=== PATIENT | male | born 1965 | race Caucasian/White ===

== ENCOUNTER 2018-10-18 14:07 | Inpatient (IN) | payer OTHER ==
[~2018-10-18] VITALS: Ht 170.2 cm; Wt 98.4 kg
[2018-10-18] MEDS ORDERED: NALOXONE 2 MG/2 ML DISP.SYRIN. IV ONE ×3 (14:08→15:30)
[2018-10-18 14:36] LABS: BASO # 0.1 x10^3/uL (0.0-0.2); BASO % 1 % (0-3); EOS # 0.2 x10^3/uL (0.0-0.7); EOS % 2 % (0-3); HEMATOCRIT 47.5 % (39.0-53.0); HEMOGLOBIN 16.3 g/dL (13.0-17.5); LYMPH # 3.3 x10^3/uL (1.0-4.8); LYMPH % 35 % (24-48); MEAN CORPUSCULAR HEMOGLOBIN 31 pg (25-35); MEAN CORPUSCULAR HGB CONC 34 g/dL (31-37); MEAN CORPUSCULAR VOLUME 90 fL (79-100); MONO # 0.7 x10^3/uL (0.0-1.1); MONO % 7 % (0-9); NEUT # 5.3 x10^3uL (1.8-7.7); NEUT % 56 % (31-73); PLATELET COUNT 264 x10^3/uL (140-400); RED BLOOD COUNT 5.26 x10^6/uL (4.30-5.70); RED CELL DISTRIBUTION WIDTH 13.5 % (11.5-14.5); WHITE BLOOD COUNT 9.5 x10^3/uL (4.0-11.0)
[2018-10-18 14:46] LABS: BILIRUBIN,URINE NEG (NEG); CLARITY,URINE CLEAR; COLOR,URINE YELLOW; GLUCOSE,URINE NEG (NEG)
[2018-10-18 14:47] LABS: ALBUMIN 3.7 g/dL (3.4-5.0); CALCIUM 8.9 mg/dL (8.5-10.1); GFR 78.5; POTASSIUM 3.4 mmol/L (3.5-5.1); TOTAL BILIRUBIN 0.3 mg/dL (0.2-1.0); TOTAL PROTEIN 7.4 g/dL (6.4-8.2)
[2018-10-18 14:47] LABS: BACTERIA,URINE 0 /HPF (0-FEW); NITRITE,URINE NEG (NEG); RBC,URINE 0 /HPF (0-2); UROBILINOGEN,URINE 0.2 mg/dL (0.2 mg/dL); WBC,URINE 0 /HPF (0-4)
[2018-10-18 14:48] LABS: BARBITURATES NEG (NEG); BENZODIAZEPINES NEG (NEG); CANNABINOIDS NEG (NEG); COCAINE NEG (NEG); METHADONE NEG (NEG); OPIATES NEG (NEG); PHENCYCLIDINE NEG (NEG)
[2018-10-18 14:49] LABS: AMPHETAMINE/METHAMPHETAMINE NEG (NEG)
--- NOTE | 2018-10-18 15:58 | RAD ---
CT HEAD WO CONTRAST Indication: AMS, Possible injestion or use of unknown drug or substance,K2. Pt combative, movement during exam.Best imaging possible
Exposure: One or more of the following individualized dose reduction techniques were utilized for this examination: 1. Automated exposure control 2. Adjustment of the mA and/or kV according to patient size 3. Use of iterative reconstruction technique. Comparison: None are available. Contrast: None FINDINGS: There is some motion degradation, may limit accuracy. No acute intracranial hemorrhage, mass effect, midline shift or abnormal extra-axial fluid collection is identified. Mild prominence of the ventricles, could indicate borderline atrophy. Schultz-white matter distinction is intact. Partially visualized sinuses demonstrate mild left maxillary and ethmoid mucosal thickening. No acute skull abnormality is identified. Orbits appear unremarkable. IMPRESSION: No definite acute intracranial abnormality, but exam limited by motion degradation. Electronically signed by: Juan Jimenez MD (10/18/2018 3:56 PM) [facility]
--- NOTE | 2018-10-18 16:01 | PHYS DOC ---
Past History Past Medical History: Hypertension Past Surgical History: Pacemaker Alcohol Use: None Social History Narrative: Unknown Adult General Chief Complaint Chief Complaint: ALTERED MENTAL STATUS HPI HPI 53-year-old male presents via EMS with altered mental status. The patient was reportedly found unresponsive in the field. During transport, he was moaning and yelling. He had no difficulty breathing so he did not get intubated. No Narcan was given. On arrival, the patient had pinpoint pupils and was having no difficulty breathing. He was unable to wake up and talk to us. He was given 2 mg of Narcan. He then began to moan loudly but would not answer questions. The [place] is [place] Their suspicion for some form of drug use. Review of Systems Review of Systems Unable to perform due to the patient being verbally unresponsive. Current Medications Current Medications Current Medications Medications (Trade) Dose Ordered Sig/Daphne Start Time Stop Time Status Last Admin Dose Admin Lorazepam (Ativan) 2 mg 1X ONCE 10/18/18 15:15 10/18/18 15:16 DC 10/18/18 15:10 2 MG Naloxone HCl (Narcan) 2 mg 1X ONCE 10/18/18 15:30 10/18/18 15:31 DC Allergies Allergies Allergies Coded Allergies Type Severity Reaction Last Updated Verified No Known Drug Allergies 10/18/18 No Physical Exam Physical Exam Constitutional: Well developed, well nourished, verbally unresponsive non-toxic appearance. [] HENT: Normocephalic, atraumatic, bilateral external ears normal, oropharynx moist, no oral exudates, nose normal. [] Eyes: Pupils pinpoint, EOMI, conjunctiva normal, no discharge. [] Neck: Normal range of motion, no tenderness, supple, no stridor. [] Cardiovascular:Heart rate regular rhythm, no murmur [] Lungs & Thorax: Bilateral breath sounds clear to auscultation [] Abdomen: Bowel sounds normal, soft, no tenderness, no masses, no pulsatile masses. [] Skin: Warm, dry, no erythema, no rash. [] Back: No tenderness, no CVA tenderness. [] Extremities: No tenderness, no cyanosis, no clubbing, ROM intact, no edema. [] Neurologic: Unresponsive, spontaneous movement of all extremities with noxious stimuli[] Psychologic: Unable to evaluate[] Current Patient Data Vital Signs Vital Signs Date Time Temp Pulse Resp B/P (MAP) Pulse Ox O2 Delivery O2 Flow Rate FiO2 10/18/18 15:16 82 18 120/66 (84) 95 Room Air 10/18/18 14:34 97.8 Lab Results Laboratory Tests Test 10/18/18 14:11 10/18/18 14:24 White Blood Count 9.5 x10^3/uL (4.0-11.0) Red Blood Count 5.26 x10^6/uL (4.30-5.70) Hemoglobin 16.3 g/dL (13.0-17.5) Hematocrit 47.5 % (39.0-53.0) Mean Corpuscular Volume 90 fL (79-100) Mean Corpuscular Hemoglobin 31 pg (25-35) Mean Corpuscular Hemoglobin Concent 34 g/dL (31-37) Red Cell Distribution Width 13.5 % (11.5-14.5) Platelet Count 264 x10^3/uL (140-400) Neutrophils (%) (Auto) 56 % (31-73) Lymphocytes (%) (Auto) 35 % (24-48) Monocytes (%) (Auto) 7 % (0-9) Eosinophils (%) (Auto) 2 % (0-3) Basophils (%) (Auto) 1 % (0-3) Neutrophils # (Auto) 5.3 x10^3uL (1.8-7.7) Lymphocytes # (Auto) 3.3 x10^3/uL (1.0-4.8) Monocytes # (Auto) 0.7 x10^3/uL (0.0-1.1) Eosinophils # (Auto) 0.2 x10^3/uL (0.0-0.7) Basophils # (Auto) 0.1 x10^3/uL (0.0-0.2) Sodium Level 139 mmol/L (136-145) Potassium Level 3.4 mmol/L (3.5-5.1) L Chloride Level 102 mmol/L (98-107) Carbon Dioxide Level 25 mmol/L (21-32) Anion Gap 12 (6-14) Blood Urea Nitrogen 10 mg/dL (8-26) Creatinine 1.0 mg/dL (0.7-1.3) Estimated GFR (Cockcroft-Gault) 78.5 BUN/Creatinine Ratio 10 (6-20) Glucose Level 121 mg/dL (70-99) H Calcium Level 8.9 mg/dL (8.5-10.1) Total Bilirubin 0.3 mg/dL (0.2-1.0) Aspartate Amino Transferase (AST) 15 U/L (15-37) Alanine Aminotransferase (ALT) 18 U/L (16-63) Alkaline Phosphatase 88 U/L (46-116) Total Protein 7.4 g/dL (6.4-8.2) Albumin 3.7 g/dL (3.4-5.0) Albumin/Globulin Ratio 1.0 (1.0-1.7) Urine Collection Type U cath Urine Color Yellow Urine Clarity Clear Urine pH 5.0 Urine Specific [place] <=1.005 Urine Protein Neg (NEG-TRACE) Urine Glucose (UA) Neg mg/dL (NEG) Urine Ketones (Stick) Neg mg/dL (NEG) Urine Blood Neg (NEG) Urine Nitrite Neg (NEG) Urine Bilirubin Neg (NEG) Urine Urobilinogen Dipstick 0.2 mg/dL (0.2 mg/dL) Urine Leukocyte Esterase Neg (NEG) Urine RBC 0 /HPF (0-2) Urine WBC 0 /HPF (0-4) Urine Squamous Epithelial Cells None /LPF Urine Bacteria 0 /HPF (0-FEW) Urine Opiates Screen Neg (NEG) Urine Methadone Screen Neg (NEG) Urine Barbiturates Neg (NEG) Urine Phencyclidine Screen Neg (NEG) Urine Amphetamine/Methamphetamine Neg (NEG) Urine Benzodiazepines Screen Neg (NEG) Urine Cocaine Screen Neg (NEG) Urine Cannabinoids Screen Neg (NEG) Urine Ethyl Alcohol Pos (NEG) EKG EKG [] Radiology/Procedures Radiology/Procedures [] Impressions: CT HEAD WO CONTRAST Indication: AMS, Possible injestion or use of unknown drug or substance,K2. Pt combative, movement during exam.Best imaging possible
Exposure: One or more of the following individualized dose reduction techniques were utilized for this examination: 1. Automated exposure control 2. Adjustment of the mA and/or kV according to patient size 3. Use of iterative reconstruction technique. Comparison: None are available. Contrast: None FINDINGS: There is some motion degradation, may limit accuracy. No acute intracranial hemorrhage, mass effect, midline shift or abnormal extra-axial fluid collection is identified. Mild prominence of the ventricles, could indicate borderline atrophy. Schultz-white matter distinction is intact. Partially visualized sinuses demonstrate mild left maxillary and ethmoid mucosal thickening. No acute skull abnormality is identified. Orbits appear unremarkable. IMPRESSION: No definite acute intracranial abnormality, but exam limited by motion degradation. Electronically signed by: Juan Jimenez MD (10/18/2018 3:56 PM) [facility] DICTATED AND SIGNED BY: JUAN JIMENEZ MD DATE: 10/18/18 0552 CC: LOREN MURPHY DO; PCP,NO ~ Course & Med Decision Making Course & Med Decision Making Pertinent Labs and Imaging studies reviewed. (See chart for details) The patient was initially given 2 mg of Narcan on arrival. He then began to moan and make noise. He did not say any intelligible words. While he was moaning he did say a couple of real words, but would not answer questions. He then became combative and was flailing about. We gave him multiple doses of Ativan. This calms the patient down. We did have to intermittently use restraints when he was combative. His labs are unremarkable. His urinalysis is only significant for alcohol. I suspect the patient is doing some form of synthetic drug that we can't test for. At no time did he have respiratory compromise. His head CT was unremarkable. I discussed the case with Dr. Rodriguez and he agreed to admit the patient. He is being monitored by intermediate guards. [] Dragon Disclaimer Dragon Disclaimer This electronic medical record was generated, in whole or in part, using a voice recognition dictation system. Departure Departure: Impression: Primary Impression: Drug intoxication with delirium Disposition: ADMITTED INPATIENT Condition: GUARDED Referrals: PCP,NO (PCP) LOREN MURPHY DO Oct 18, 2018 16:01
[2018-10-18] MEDS ORDERED: ONDANSETRON PF 4 MG/2 ML VIAL. IV PRN (17:15)
[2018-10-18 19:58] VITALS: BP 91/60
[2018-10-18 23:05] VITALS: BP 125/78
[2018-10-19] MEDS ORDERED: AMLO5TAB10 PO (01:02)
[2018-10-19] MEDS ORDERED: LOSA100T14 PO (01:02)
[2018-10-19] MEDS ORDERED: HYDR12.58 PO (01:02)
[2018-10-19] MEDS ORDERED: LORA10TA3 PO (01:02)
[2018-10-19] MEDS ORDERED: SOTA80TA48 PO (01:02)
[2018-10-19 05:25] VITALS: BP 138/85
[2018-10-19 11:26] VITALS: BP 124/86
[2018-10-19] MEDS: IBUPROFEN 400 MG TABLET. PO PRN ×2 (12:28→19:12)
--- NOTE | 2018-10-19 14:23 | EKG ---
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
[2018-10-19 14:43] VITALS: BP 135/94
--- NOTE | 2018-10-19 16:57 | HP ---
ADMIT DATE: 10/18/2018 HISTORY OF PRESENT ILLNESS: The patient is a 53-year-old male patient, an inmate at the [facility], who was brought to the Emergency Room by emergency medical personnel with altered mental status. The patient was reportedly found unresponsive in the field and during transport, he was moaning and yelling. He had no difficulty breathing, so he did not get intubated. No Narcan was given. On arrival, the patient has pinpoint pupils and was having no difficulty breathing. He was unable to wake up and talk to us. He was given 2 mg of Narcan. He then began to moan loudly, but would not answer questions. The patient is from a low security halfway and there was suspicion for some form of drug use. He was extensively investigated in the Emergency Room, has had a CT scan of the head, which basically showed no definite acute intracranial abnormality, but exam limited by motion degradation. His lab work was mostly unremarkable except for the fact has hypokalemia. His urinalysis was negative and his toxic screen was positive for alcohol. He was admitted for further observation. On questioning him, when he woke up, he apparently has had most likely systolic congestive heart failure. He apparently has what seems to be systolic congestive heart failure with runs of V-tach for which he has an AICD placed in 2004 and interrogated every 6 months according to him. PAST SURGICAL HISTORY: Significant for AICD placement. ALLERGIES: He has no known drug allergies. MEDICATIONS: He is currently on following medications: He is on loratadine 10 mg once a day, sotalol 160 mg p.o. b.i.d., amlodipine 5 mg once a day, losartan potassium 50 mg once a day and hydrochlorothiazide 12.5 mg daily. FAMILY HISTORY: He has 2 sisters and 1 brother, older and healthy. His father at the age of 62 because of stroke and mother at age of 78 of natural causes. SOCIAL HISTORY: He is , has no children. He does not smoke or drink alcohol. His last time use cocaine was in 2004. PHYSICAL EXAMINATION: GENERAL: On arrival to the Emergency Room, the patient was a pinpoint pupil, was moaning but was unresponsive. Despite even giving him Narcan. There was no pallor, jaundice, cyanosis, or thyromegaly. No jugular venous distension. No limb edema. VITAL SIGNS: His heart rate was 83, blood pressure was 78/63, temperature was 97.8, respiratory rate was 18 and oxygen saturation was 99% on room air. HEAD, EYES, EARS, NOSE AND THROAT: Showed normocephalic, atraumatic. NECK: Supple. HEART: Showed normal first and second heart sounds. No gallop, rub or murmur. CHEST: Clear to auscultation. No crepitation or rhonchi. ABDOMEN: Distended, soft, nontender. NEUROLOGIC: He was unresponsive, but without any obvious lateralizing sign. LABORATORY DATA: On arrival showed a white cell count 9500, hemoglobin 16, hematocrit 47.5, MCV 90 and platelet count 264,000. His chemistry showed a serum sodium 139, potassium 3.4, chloride 102, bicarbonate 25, anion gap of 12, BUN 10, creatinine 1, estimated GFR was 78 mL per minute, his glucose 121, calcium was 8.9. Total bilirubin 0.3. AST, ALT, alkaline phosphatase were normal. Total protein was 7.4, albumin 3.7. Urinalysis was unremarkable. Toxic screen was negative except for alcohol. His nasal screen for MRSA by PCR was positive. ASSESSMENT AND PLAN: The patient was admitted for further observation. We have will consult the cardiology to interrogate his [employer] and decide on further management accordingly. VISHAL ZAMORA MD DR: SHAHBAZ/edwina JOB#: [id number] / [id number]
[2018-10-19 19:13] VITALS: BP 137/89
[2018-10-19] MEDS: SOTALOL 80 MG TABLET. PO SCH (19:52)
[2018-10-19 22:08] VITALS: BP 139/83
--- NOTE | 2018-10-19 22:37 | PDOC ---
PROVIDER NOTE PROVIDER NOTE PROVIDER NOTE Cardiology Consultation Note: Reason for consult: CMP and Syncope HPI: 53 y.o man with prior history of VT s/p ICD presenting for syncopal event at correction. Denies any preceding problems. No recent med changes. No chest pain or dyspnea. Currently feeling well. He had ICD placedin 2004 and has had one gen change. Mostly followed through [facility]. Pmhx As above +HTN Sochx: Been imprisoned for last several years. Previously did drugs. ALL: NKDA CV meds reviewed: Sotalol 160mg bid. Amlodipine Losartan ROS: As above Famhx: No SCD. Constitutional: Well developed, well nourished, no acute distress, non-toxic appearance. [] Eyes: PERRLA, EOMI, conjunctiva normal, no discharge. [] Neck: Normal range of motion, no tenderness, supple, no stridor. [] Cardiovascular:Heart rate regular rhythm, no murmur [] Lungs & Thorax: Bilateral breath sounds clear to auscultation [] Abdomen: Bowel sounds normal, soft, no tenderness, no masses, no pulsatile masses. [] Skin: Warm, dry, no erythema, no rash. [] Back: No tenderness, no CVA tenderness. [] Extremities: No tenderness, no cyanosis, no clubbing, ROM intact, no edema. [] Neurologic: Alert and oriented X 3, normal motor function, normal sensory function, no focal deficits noted. [] Psychologic: Affect normal, judgement normal, mood normal. [] Labs reviewed. EKG unremarkable. Await records. Impression: 1. Syncope - etiology unclear. Given his history will need to r/o occult new arrhythmia. Drug screen with ? alcohol. 2. VT s/p ICD - awaiting interrogation 3. HTN Plan: 1. Continue home meds. 2. Replete to keep K > 4.0 and Mg > 2.0. Will check labs in a.m 3. Await records and interrogation. 4. Echo ordered. Thanks for this consult. DIscussed extensively with patient. EDITH MARIE MD Oct 19, 2018 22:36
[2018-10-19] MEDS ORDERED: POTASSIUM CHLORIDE 20 MEQ TABLET.ER. PO ONE (23:00)
[2018-10-20 05:14] VITALS: BP 104/67
[2018-10-20 06:34] LABS: HEMATOCRIT 48.2 % (39.0-53.0); HEMOGLOBIN 16.5 g/dL (13.0-17.5); RED BLOOD COUNT 5.36 x10^6/uL (4.30-5.70); RED CELL DISTRIBUTION WIDTH 13.7 % (11.5-14.5)
[2018-10-20 06:46] LABS: ALBUMIN 3.4 g/dL (3.4-5.0); ALBUMIN/GLOBULIN RATIO 0.9 (1.0-1.7); CREATININE 1.7 mg/dL (0.7-1.3); GFR 42.5; POTASSIUM 4.2 mmol/L (3.5-5.1); TOTAL BILIRUBIN 0.8 mg/dL (0.2-1.0); TOTAL PROTEIN 7.2 g/dL (6.4-8.2)
[2018-10-20 09:30] VITALS: BP 110/74
[2018-10-20] MEDS: hydroCHLOROthiazide 12.5 MG CAPSULE PO SCH (09:43)
[2018-10-20] MEDS: CETIRIZINE HCL 10 MG TABLET PO SCH (09:52)
[2018-10-20] MEDS: LOSARTAN 50 MG TABLET. PO SCH (09:53)
[2018-10-20] MEDS: amLODIPine BESYLATE 5 MG TABLET PO SCH (09:53)
[2018-10-20] MEDS: SOTALOL 80 MG TABLET. PO SCH ×2 (09:54→21:07)
[2018-10-20 10:46] VITALS: BP 122/80
--- NOTE | 2018-10-20 12:23 | PDOC ---
PROGRESS NOTES Diagnosis Problem Problems Medical Problems: (1) Drug intoxication with delirium Status: Acute Assessment Problems Medical Problems: (1) Drug intoxication with delirium Status: Acute Syncope - no arrhythmias, by device check, to explain syncope. No orthostasis. Questionable substance use? consider neuro eval. VT s/p ICD - device interrogation with appropriate impedance, thresholds and sensitivity. No sustained VT events. no therapies required or delivered. 3 non episodes of SVT 150s , 2 min at noon, 22 seconds at 1202 and 25 seconds at 1625. No arrhythmias significant to cause syncope. hypertension - well controlled acute renal insufficiency - stop HCTZ Subjective no complaints, no chest pain, no dyspnea, no lightheadedness Objective Vital Signs Date Time Temp Pulse Resp B/P (MAP) Pulse Ox O2 Delivery O2 Flow Rate FiO2 10/20/18 10:46 97.7 89 20 122/80 (94) 98 Room Air Intake and Output 10/20/18 06:59 Intake Total 480 ml Output Total 650 ml Balance -170 ml Intake Oral 480 ml Output Urine Total 650 ml Physical Exam Genral: alert, oriented, NAD [] Cardiovascular:Heart rate regular rhythm, no murmur Lungs : Bilateral breath sounds clear to auscultation Abdomen: Bowel sounds normal, soft, no tenderness Extremities: no cyanosis, no edema, +pulses Neurologic: Alert and oriented X 3, no acute deficits observed Review of Relevant I have reviewed the following items supriya (where applicable) has been applied. Labs Laboratory Tests Test 10/18/18 14:11 10/18/18 14:24 10/18/18 20:34 10/20/18 06:00 White Blood Count 9.5 x10^3/uL (4.0-11.0) 10.0 x10^3/uL (4.0-11.0) Red Blood Count 5.26 x10^6/uL (4.30-5.70) 5.36 x10^6/uL (4.30-5.70) Hemoglobin 16.3 g/dL (13.0-17.5) 16.5 g/dL (13.0-17.5) Hematocrit 47.5 % (39.0-53.0) 48.2 % (39.0-53.0) Mean Corpuscular Volume 90 fL (79-100) 90 fL (79-100) Mean Corpuscular Hemoglobin 31 pg (25-35) 31 pg (25-35) Mean Corpuscular Hemoglobin Concent 34 g/dL (31-37) 34 g/dL (31-37) Red Cell Distribution Width 13.5 % (11.5-14.5) 13.7 % (11.5-14.5) Platelet Count 264 x10^3/uL (140-400) 253 x10^3/uL (140-400) Neutrophils (%) (Auto) 56 % (31-73) Lymphocytes (%) (Auto) 35 % (24-48) Monocytes (%) (Auto) 7 % (0-9) Eosinophils (%) (Auto) 2 % (0-3) Basophils (%) (Auto) 1 % (0-3) Neutrophils # (Auto) 5.3 x10^3uL (1.8-7.7) Lymphocytes # (Auto) 3.3 x10^3/uL (1.0-4.8) Monocytes # (Auto) 0.7 x10^3/uL (0.0-1.1) Eosinophils # (Auto) 0.2 x10^3/uL (0.0-0.7) Basophils # (Auto) 0.1 x10^3/uL (0.0-0.2) Sodium Level 139 mmol/L (136-145) 141 mmol/L (136-145) Potassium Level 3.4 mmol/L (3.5-5.1) 4.2 mmol/L (3.5-5.1) Chloride Level 102 mmol/L (98-107) 106 mmol/L (98-107) Carbon Dioxide Level 25 mmol/L (21-32) 26 mmol/L (21-32) Anion Gap 12 (6-14) 9 (6-14) Blood Urea Nitrogen 10 mg/dL (8-26) 13 mg/dL (8-26) Creatinine 1.0 mg/dL (0.7-1.3) 1.7 mg/dL (0.7-1.3) Estimated GFR (Cockcroft-Gault) 78.5 42.5 BUN/Creatinine Ratio 10 (6-20) 8 (6-20) Glucose Level 121 mg/dL (70-99) 107 mg/dL (70-99) Calcium Level 8.9 mg/dL (8.5-10.1) 9.0 mg/dL (8.5-10.1) Total Bilirubin 0.3 mg/dL (0.2-1.0) 0.8 mg/dL (0.2-1.0) Aspartate Amino Transf (AST/SGOT) 15 U/L (15-37) 13 U/L (15-37) Alanine Aminotransferase (ALT/SGPT) 18 U/L (16-63) 16 U/L (16-63) Alkaline Phosphatase 88 U/L (46-116) 71 U/L (46-116) Total Protein 7.4 g/dL (6.4-8.2) 7.2 g/dL (6.4-8.2) Albumin 3.7 g/dL (3.4-5.0) 3.4 g/dL (3.4-5.0) Albumin/Globulin Ratio 1.0 (1.0-1.7) 0.9 (1.0-1.7) Urine Collection Type U cath Urine Color Yellow Urine Clarity Clear Urine pH 5.0 Urine Specific [place] <=1.005 Urine Protein Neg (NEG-TRACE) Urine Glucose (UA) Neg mg/dL (NEG) Urine Ketones (Stick) Neg mg/dL (NEG) Urine Blood Neg (NEG) Urine Nitrite Neg (NEG) Urine Bilirubin Neg (NEG) Urine Urobilinogen Dipstick 0.2 mg/dL (0.2 mg/dL) Urine Leukocyte Esterase Neg (NEG) Urine RBC 0 /HPF (0-2) Urine WBC 0 /HPF (0-4) Urine Squamous Epithelial Cells None /LPF Urine Bacteria 0 /HPF (0-FEW) Urine Opiates Screen Neg (NEG) Urine Methadone Screen Neg (NEG) Urine Barbiturates Neg (NEG) Urine Phencyclidine Screen Neg (NEG) Urine Amphetamine/Methamphetamine Neg (NEG) Urine Benzodiazepines Screen Neg (NEG) Urine Cocaine Screen Neg (NEG) Urine Cannabinoids Screen Neg (NEG) Urine Ethyl Alcohol Pos (NEG) Nasal Screen MRSA (PCR) Positive (Negative) Magnesium Level 2.1 mg/dL (1.8-2.4) Medications Current Medications Lorazepam (Ativan) 2 mg 1X ONCE IV Last administered on 10/18/18at 14:52; Start 10/18/18 at 15:00; Stop 10/18/18 at 15:01; Status DC Naloxone HCl (Narcan) 2 mg 1X ONCE IV Last administered on 10/18/18 15:03; Start 10/18/18 at 15:30; Stop 10/18/18 at 15:31; Status DC Naloxone HCl (Narcan) 2 mg 1X ONCE IV ; Start 10/18/18 at 15:30; Stop 10/18/18 at 15:31; Status DC Lorazepam (Ativan) 2 mg 1X ONCE IV Last administered on 10/18/18at 15:10; Start 10/18/18 at 15:15; Stop 10/18/18 at 15:16; Status DC Ondansetron HCl (Zofran) 4 mg PRN Q4HRS PRN IV NAUSEA/VOMITING; Start 10/18/18 at 17:15; Stop 10/19/18 at 17:14; Status DC Lorazepam (Ativan) 2 mg Q2HR PRN IV AGITATION; Start 10/18/18 at 17:15 Ibuprofen (Motrin) 400 mg PRN Q6HRS PRN PO INFLAMMATION Last administered on 19:12; Start 10/19/18 at 12:00 Amlodipine Besylate (Norvasc) 5 mg DAILY PO Last administered on 10/20/18 09:53 ; Start 10/20/18 at 09:00 Hydrochlorothiazide (Microzide) 12.5 mg DAILY PO Last administered on 10/20/18 09:43; Start 10/20/18 at 09:00 Losartan Potassium (Cozaar) 50 mg DAILY PO Last administered on 10/20/18 09:53 ; Start 10/20/18 at 09:00 Sotalol HCl (Betapace) 160 mg BID PO Last administered on 10/20/18 09:54; Start 10/19/18 at 21:00 Cetirizine HCl (ZyrTEC) 10 mg DAILY PO Last administered on 10/20/18 09:52; Start 10/20/18 at 09:00 Potassium Chloride (Klor-Con) 40 meq 1X ONCE PO Last administered on 10/19/18 22:55; Start 10/19/18 at 23:00; Stop 10/19/18 at 23:01; Status DC Active Scripts Active Reported Sotalol (Sotalol Hcl) 80 Mg Tablet 160 Mg PO BID Losartan Potassium 100 Mg Tablet 50 Mg PO DAILY Loratadine 10 Mg Tablet 10 Mg PO DAILY Hydrochlorothiazide Tablet (Hydrochlorothiazide) 12.5 Mg Tablet 12.5 Mg PO DAILY Amlodipine Besylate 5 Mg Tablet 5 Mg PO DAILY Vitals/I & O Vital Sign - Last 24 Hours 10/19/18 10/19/18 10/19/18 10/19/18 14:43 19:13 19:52 20:00 Temp 98.7 99.3 Pulse 116 116 Resp 20 20 B/P (MAP) 135/94 (108) 137/89 (105) 137/89 Pulse Ox 96 94 O2 Delivery Room Air Room Air Room Air 10/19/18 10/20/18 10/20/18 10/20/18 22:08 05:14 08:58 09:30 Temp 98.7 98.9 Pulse 83 84 93 Resp 20 19 B/P (MAP) 139/83 (101) 104/67 (79) 110/74 (86) Pulse Ox 95 97 O2 Delivery Room Air Room Air Room Air Room Air 10/20/18 10/20/18 10/20/18 10/20/18 09:53 09:53 09:54 10:46 Temp 97.7 Pulse 84 84 84 89 Resp 20 B/P (MAP) 110/74 110/74 110/74 122/80 (94) Pulse Ox 98 O2 Delivery Room Air Intake and Output 10/19/18 10/19/18 10/20/18 14:59 22:59 06:59 Intake Total 240 ml 240 ml Output Total 650 ml Balance 240 ml -650 ml 240 ml BOB AMOR APRN Oct 20, 2018 12:23
[2018-10-20] MEDS: IV NORMAL SALINE 1,000ML 1,000 ML IV SCH ×2 (14:37→21:03)
[2018-10-20 14:50] VITALS: BP 115/75
[2018-10-20] MEDS: IBUPROFEN 400 MG TABLET. PO PRN (18:43)
[2018-10-20 19:24] VITALS: BP 98/58
--- NOTE | 2018-10-20 20:59 | PN ---
DATE: 10/20/2018 SUBJECTIVE: The patient second is a 53-year-old male patient, an inmate at [facility], who basically came with altered mental status and was found unresponsive. He apparently is known to have history of ventricular tachycardia, status post ICD; however, device interrogation showed that the device is functioning well. There is no evidence of sustained ventricular tachycardia. No therapy is required or delivered. He has no significant arrhythmia to cause syncope. His hypertension was well controlled; however, unfortunately his kidney function has worsened, his creatinine has risen from 1-1.7 and therefore we held his thiazide diuretics and started him on IV fluid. As there is no cardiac explanation for his presentation, we will consult the neurologist, Dr. Coleman to assist in his management. PHYSICAL EXAMINATION: GENERAL: When I saw him this afternoon, he was resting, slightly propped up in bed, in no apparent respiratory distress. No pallor, jaundice, cyanosis, or thyromegaly. No jugular venous distension. No limb edema. VITAL SIGNS: His heart rate was 89, blood pressure was 122/80, temperature was 97.7, respiratory rate 20, and oxygen saturation was 98%. HEAD, EYES, EARS, NOSE, AND THROAT: Showed normocephalic, atraumatic. NECK: Supple. HEART: Showed normal first and second heart sounds. No gallop, rub or murmur. CHEST: Clear to auscultation. No crepitation or rhonchi. ABDOMEN: Distended, soft, nontender. No guarding or rigidity. No organomegaly. All hernial orifices intact. Bowel sounds normal. NEUROLOGIC: He was slightly propped up in bed, in no apparent distress. He was sleepy, but arousable. All cranial nerves intact. He moves extremities without difficulty. His intake over the last 24 hours was incompletely recorded, his output was 0. LABORATORY DATA: As of this morning, his serum sodium was 141, potassium 4.2, chloride 106, bicarbonate 26, anion gap of 9, BUN 13, creatinine 1.7, estimated GFR was 42 mL per minute. His glucose 107, calcium was 9, magnesium 2.1. Total bilirubin, AST, ALT, alkaline phosphatase were normal. Total protein was 7.2, albumin was 3.4. Urinalysis was essentially unremarkable and toxic screen was positive only for alcohol. ASSESSMENT: 1. Syncopal episode; however, no arrhythmia detected by interrogating his ICD. 2. Hypertension, well controlled. 3. Acute kidney injury with a creatinine has risen to 1.7 from 1. PLAN: To start him on IV normal saline at 75 mL per hour. We will consult Dr. Coleman. Repeat his lab work tomorrow and we will decide on the further management according to the result and evaluation by Dr. Coleman. VISHAL ZAMORA MD DR: SHAHBAZ/edwina JOB#: [id number] / [id number]
[2018-10-20 22:50] VITALS: BP 104/61
[2018-10-21 05:21] VITALS: BP 131/87
[2018-10-21 06:31] LABS: CALCIUM 8.8 mg/dL (8.5-10.1); CREATININE 1.3 mg/dL (0.7-1.3); POTASSIUM 3.6 mmol/L (3.5-5.1)
[2018-10-21] MEDS: hydroCHLOROthiazide 12.5 MG CAPSULE PO SCH (09:40)
[2018-10-21] MEDS: LOSARTAN 50 MG TABLET. PO SCH (09:41)
[2018-10-21] MEDS: CETIRIZINE HCL 10 MG TABLET PO SCH (09:41)
[2018-10-21] MEDS: SOTALOL 80 MG TABLET. PO SCH (09:41)
[2018-10-21] MEDS: amLODIPine BESYLATE 5 MG TABLET PO SCH (09:41)
--- NOTE | 2018-10-21 09:55 | CARD ---
MR#: [id number] Date of Study: 10/21/2018 Ordering Physician: EDITH VALENZUELA, Referring Physician: VISHAL ZAMORA, Tech: Kerline Britt APPROVED REPORT EXAM: Two-dimensional and M-mode echocardiogram with Doppler and color Doppler. Other Information Quality : Fair Technically limited study due to body habitus, smoking and coughing INDICATION Syncope Surgery/Intervention ICD/Pacemaker: Date: 2004 RISK FACTORS Hypertension 2D DIMENSIONS Left Atrium(2D)3.1 (1.6-4.0cm)IVSd1.4 (0.7-1.1cm) Aortic Root(2D)3.2 (2.0-3.7cm)LVDd5.5 (3.9-5.9cm) LVOT Diameter2.0 (1.8-2.4cm)PWd1.4 (0.7-1.1cm) LVDs3.0 (2.5-4.0cm)FS (%) 45.3 % SV111.6 mlLVEF(%)76.1 (>50%) Aortic Valve AoV Peak Franky.144.3cm/sAoV VTI29.3cm AO Peak GR.8.3mmHgLVOT Peak Franky.129.7cm/s LVOT VTI 28.03cmAO Mean GR.5mmHg LINA (VMAX)2.37mm3NLR (VTI)3.05cm2 Mitral Valve MV E Qwscziai10.6cm/sMV DECEL [id number] MV A Mwxboarm48.4cm/sE/A Ratio1.1 Pulmonary Valve PV Peak Phsiuais07.4cm/sPV Peak Grad.3mmHg Tricuspid Valve RAP [id number] Pulmonary Vein S1 Fvfpyehg44.9cm/sD2 Fjqzxsok29.9cm/s LEFT VENTRICLE The left ventricle is normal size. There is moderate concentric left ventricular hypertrophy. The lef t ventricular systolic function is normal and the ejection fraction is within normal range. The Eject ion Fraction is >55%. There is grossly normal LV segmental wall motion. Transmitral Doppler flow morgan sagar is Grade II-pseudonormal filling dynamics. RIGHT VENTRICLE The right ventricle is normal size. There is normal right ventricular wall thickness. The right ventr icular systolic function is normal. There is a pacemaker/ICD lead in the right ventricle. ATRIA The left atrium size is normal. The right atrium size is normal. There is a pacemaker lead seen in th e right atrium. The interatrial septum is intact with no evidence for an atrial septal defect or dozier nt foramen ovale as noted on 2-D or Doppler imaging. AORTIC VALVE The aortic valve is not well visualized. Doppler and Color Flow revealed no significant aortic regurg itation. There is no significant aortic valvular stenosis. MITRAL VALVE The mitral valve is normal in structure and function. There is no evidence of mitral valve prolapse. There is no mitral valve stenosis. Doppler and Color-flow revealed trace mitral regurgitation. TRICUSPID VALVE The tricuspid valve is normal in structure and function. Doppler and Color Flow revealed no tricuspid valve regurgitation noted. There is no tricuspid valve stenosis. PULMONIC VALVE The pulmonic valve is not well visualized. Doppler and Color Flow revealed no pulmonic valvular regur gitation. GREAT VESSELS The aortic root is normal in size. The IVC is normal in size and collapses >50% with inspiration. PERICARDIAL EFFUSION There is no evidence of significant pericardial effusion. Critical Notification Critical Value: No <Conclusion> The left ventricular systolic function is normal and the ejection fraction is within normal range. Th e Ejection Fraction is >55%. There is grossly normal LV segmental wall motion. There is a pacemaker/ICD lead in the right ventricle. Technically difficult study. Grossly no significant valvular issues Signed by : Edith Valenzuela, Electronically Approved : 10/21/2018 09:55:18
--- NOTE | 2018-10-21 10:13 | PDOC ---
PROGRESS NOTES Diagnosis Problem Problems Medical Problems: (1) Drug intoxication with delirium Status: Acute Assessment Problems Medical Problems: (1) Drug intoxication with delirium Status: Acute 1. Syncope - no arrhythmias, by device check, to explain syncope. No orthostasis. Questionable substance use? consider neuro eval. echo pending. if no significant abn will be ok for discharge from CV standpoint. 2. VT s/p ICD - device interrogation with appropriate impedance, thresholds and sensitivity. No sustained VT events. no therapies required or delivered. 3 non episodes of SVT 150s , 2 min at noon, 22 seconds at 1202 and 25 seconds at 1625. No arrhythmias significant to cause syncope. appropriate ICD function. 3. hypertension - controlled 4. acute renal insufficiency - stopped HCTZ, Cr normalized. Await echo. if no significant abnormalities, will sign off and Ok for DC from CV perspective. Subjective no dizziness or lightheadedness, no chest pain or dyspnea Objective tele - no significant arrhythmias Vital Signs Date Time Temp Pulse Resp B/P (MAP) Pulse Ox O2 Delivery O2 Flow Rate FiO2 10/21/18 09:41 60 131/87 10/21/18 08:00 Room Air 10/21/18 05:21 98.7 18 96 Intake and Output 10/21/18 06:59 Intake Total 2188 ml Balance 2188 ml Intake Oral 1480 ml IV Total 708 ml # Voids 4 # Bowel Movements 1 Physical Exam gen: awake and alert, no acute distress CV : regular rate and rhythm lungs:clear abd: bowel sounds present ext:no edema Review of Relevant I have reviewed the following items supriya (where applicable) has been applied. Labs Laboratory Tests Test 10/20/18 06:00 10/21/18 06:00 White Blood Count 10.0 x10^3/uL (4.0-11.0) Red Blood Count 5.36 x10^6/uL (4.30-5.70) Hemoglobin 16.5 g/dL (13.0-17.5) Hematocrit 48.2 % (39.0-53.0) Mean Corpuscular Volume 90 fL (79-100) Mean Corpuscular Hemoglobin 31 pg (25-35) Mean Corpuscular Hemoglobin Concent 34 g/dL (31-37) Red Cell Distribution Width 13.7 % (11.5-14.5) Platelet Count 253 x10^3/uL (140-400) Sodium Level 141 mmol/L (136-145) 133 mmol/L (136-145) Potassium Level 4.2 mmol/L (3.5-5.1) 3.6 mmol/L (3.5-5.1) Chloride Level 106 mmol/L (98-107) 101 mmol/L (98-107) Carbon Dioxide Level 26 mmol/L (21-32) 26 mmol/L (21-32) Anion Gap 9 (6-14) 6 (6-14) Blood Urea Nitrogen 13 mg/dL (8-26) 16 mg/dL (8-26) Creatinine 1.7 mg/dL (0.7-1.3) 1.3 mg/dL (0.7-1.3) Estimated GFR (Cockcroft-Gault) 42.5 58.0 BUN/Creatinine Ratio 8 (6-20) Glucose Level 107 mg/dL (70-99) 94 mg/dL (70-99) Calcium Level 9.0 mg/dL (8.5-10.1) 8.8 mg/dL (8.5-10.1) Magnesium Level 2.1 mg/dL (1.8-2.4) Total Bilirubin 0.8 mg/dL (0.2-1.0) Aspartate Amino Transf (AST/SGOT) 13 U/L (15-37) Alanine Aminotransferase (ALT/SGPT) 16 U/L (16-63) Alkaline Phosphatase 71 U/L (46-116) Total Protein 7.2 g/dL (6.4-8.2) Albumin 3.4 g/dL (3.4-5.0) Albumin/Globulin Ratio 0.9 (1.0-1.7) Medications Current Medications Lorazepam (Ativan) 2 mg 1X ONCE IV Last administered on 10/18/18at 14:52; Start 10/18/18 at 15:00; Stop 10/18/18 at 15:01; Status DC Naloxone HCl (Narcan) 2 mg 1X ONCE IV Last administered on 10/18/18at 15:03; Start 10/18/18 at 15:30; Stop 10/18/18 at 15:31; Status DC Naloxone HCl (Narcan) 2 mg 1X ONCE IV ; Start 10/18/18 at 15:30; Stop 10/18/18 at 15:31; Status DC Lorazepam (Ativan) 2 mg 1X ONCE IV Last administered on 10/18/18 15:10; Start 10/18/18 at 15:15; Stop 10/18/18 at 15:16; Status DC Ondansetron HCl (Zofran) 4 mg PRN Q4HRS PRN IV NAUSEA/VOMITING; Start 10/18/18 at 17:15; Stop 10/19/18 at 17:14; Status DC Lorazepam (Ativan) 2 mg Q2HR PRN IV AGITATION; Start 10/18/18 at 17:15 Ibuprofen (Motrin) 400 mg PRN Q6HRS PRN PO INFLAMMATION Last administered on 18:43; Start 10/19/18 at 12:00 Amlodipine Besylate (Norvasc) 5 mg DAILY PO Last administered on 10/21/18 09:41 ; Start 10/20/18 at 09:00 Hydrochlorothiazide (Microzide) 12.5 mg DAILY PO Last administered on 10/21/18 09:40; Start 10/20/18 at 09:00 Losartan Potassium (Cozaar) 50 mg DAILY PO Last administered on 10/21/18 09:41 ; Start 10/20/18 at 09:00 Sotalol HCl (Betapace) 160 mg BID PO Last administered on 10/21/18 09:41; Start 10/19/18 at 21:00 Cetirizine HCl (ZyrTEC) 10 mg DAILY PO Last administered on 10/21/18 09:41; Start 10/20/18 at 09:00 Potassium Chloride (Klor-Con) 40 meq 1X ONCE PO Last administered on 10/19/18 22:55; Start 10/19/18 at 23:00; Stop 10/19/18 at 23:01; Status DC Sodium Chloride 1,000 ml @ 75 mls/hr [id number] IV Last administered on 10/20/18 21:03; Start 10/20/18 at 14:15 Active Scripts Active Reported Sotalol (Sotalol Hcl) 80 Mg Tablet 160 Mg PO BID Losartan Potassium 100 Mg Tablet 50 Mg PO DAILY Loratadine 10 Mg Tablet 10 Mg PO DAILY Hydrochlorothiazide Tablet (Hydrochlorothiazide) 12.5 Mg Tablet 12.5 Mg PO DAILY Amlodipine Besylate 5 Mg Tablet 5 Mg PO DAILY Vitals/I & O Vital Sign - Last 24 Hours 10/20/18 10/20/18 10/20/18 10/20/18 10:46 14:50 19:24 19:35 Temp 97.7 98.3 98.2 Pulse 89 68 71 Resp 20 20 20 B/P (MAP) 122/80 (94) 115/75 (88) 98/58 (71) Pulse Ox 98 96 98 O2 Delivery Room Air Room Air Room Air Room Air 10/20/18 10/20/18 10/21/18 10/21/18 21:07 22:50 05:21 08:00 Temp 99.5 98.7 Pulse 71 88 60 Resp 16 18 B/P (MAP) 98/58 104/61 (75) 131/87 (102) Pulse Ox 95 96 O2 Delivery Room Air Room Air Room Air 10/21/18 10/21/18 10/21/18 09:41 09:41 09:41 Pulse 60 60 60 B/P (MAP) 131/87 131/87 131/87 Intake and Output 10/20/18 10/20/18 10/21/18 14:59 22:59 06:59 Intake Total 840 ml 520 ml 828 ml Balance 840 ml 520 ml 828 ml BOB AMOR APRN Oct 21, 2018 10:13
[2018-10-21 11:35] VITALS: BP 113/72
--- NOTE | 2018-10-24 01:38 | CONS ---
DATE OF CONSULTATION: 10/21/2018 NEUROLOGY CONSULTATION REFERRING PHYSICIAN: Dr. Rodriguez REASON FOR CONSULTATION: Syncope, rule out seizure. HISTORY OF PRESENT ILLNESS: This is a 53-year-old right-handed male who is an inmate at the [facility], was admitted through Emergency Room on 10/18/2018 on account of a sudden onset of mental status changes. Apparently, the patient was found unresponsive in the fdc. He was transferred to the Emergency Room at [facility]. On his way, he was moaning and yelling. On arrival, the patient was given Narcan as he had pinpoint pupils. After given Narcan, the patient started to moan loudly. He was not able to answer questions. The patient does not recall the transfer to [facility], however he denies any recent head injuries, taking any drugs, or having history of seizure in the past. The patient is known to have cardiac arrhythmias and had AICD placed in 2004, which was interrogated later on and was found to be in good function. Currently, the patient denies chest pain, shortness of breath or palpitation, dysarthria, dysphagia, weakness or paresthesia, vertigo, headaches, or visual disturbances. The patient denies any history of seizure. PAST MEDICAL HISTORY: Hypertension and congestive heart failure. PAST SURGICAL HISTORY: Significant for AICD placement for cardiac arrhythmia. SOCIAL HISTORY: The patient is . He has no children. He denies smoking, alcohol drinking, or illicit drug use. The last time he used cocaine was in 2004. FAMILY HISTORY: His father at the age of 62 because of stroke and his mother at the age of 78 of unknown cause. CURRENT HOME MEDICATIONS: Loratadine 10 mg daily, sotalol 160 mg b.i.d., amlodipine 5 mg daily, losartan 50 mg daily, and hydrochlorothiazide 12.5 mg daily. ALLERGIES: No known drug allergies. REVIEW OF SYSTEMS: Ten-point review of system was performed as mentioned above in history of present illness, otherwise unremarkable. PHYSICAL EXAMINATION: GENERAL: A well-developed, well-nourished white male not in acute distress. VITAL SIGNS: Blood pressure 131/87, respiratory rate 18, pulse is 60 and regular, temperature 97.8, oxygen saturation 96% on room air. HEENT: Normocephalic, atraumatic, otherwise unremarkable. NECK: Supple. Negative for carotid bruit, lymphadenopathy, or thyromegaly. LUNGS: Clear to A and P. CARDIOVASCULAR: Regular rate and rhythm, normal S1, S2. There is no S3, S4, or murmur. ABDOMEN: Soft. Bowel sounds positive. EXTREMITIES: Negative for cyanosis, clubbing, or pitting edema. NEUROLOGIC: Mental status: The patient is alert and oriented x 3. The speech is fluent. There is no language dysfunction. Memory, judgment, and abstracting thinking are normal. The patient denies hallucination or delusion. CRANIAL NERVES: Visual coulter are full. The pupils are reactive to light and accommodation. The extraocular movements are intact. There is no nystagmus. There is no facial motor or sensory deficit. Hearing is intact bilaterally. The palate is elevated symmetrically. Sternocleidomastoid muscles are powerful bilaterally. The patient shrugs his shoulders symmetrically, protrudes his tongue in the midline without fasciculation or atrophy. MOTOR: No focal muscle bulk is seen. The tone is normal. The strength is 5/5 throughout. Sensory examination reveals normal pinprick, light touch, vibratory and position senses. Deep tendon reflexes are symmetric and active without pathologic responses. Gait: The stance is steady. The coordination is normal. The patient walks without assistance. LABORATORY DATA: From 10/20/2018 revealed white blood cells of 10,000, hemoglobin 16.5, hematocrit 48.2, platelet count 253,000. Chemistry revealed sodium of 133, potassium 3.6, chloride 101, CO2 of 26, BUN 16, creatinine 1.3, calcium 8.8, and glucose 94. Urine drug screen is positive for alcohol and nasal screen MRSA is positive. DIAGNOSTIC IMAGING: Head CT scan without contrast revealed no evidence of acute intracranial process, however the exam was limited because of motion artifacts. IMPRESSION: 1. Syncope - etiology uncertain, rule out cardiac arrhythmia. 2. Rule out seizure. 3. History of cardiac arrhythmia, required AICD placement. 4. Hypertension. RECOMMENDATIONS: 1. We will continue with current management initiated by Dr. Rodriguez and microstrategy reports developer. 2. Follow up in Neurology Clinic as an outpatient to arrange for electroencephalogram to rule out a seizure. M Hans MANJARREZ MD DR: WILBERT/edwina JOB#: [id number] / [id number]
--- NOTE | 2018-11-17 15:35 | DS ---
DATE OF DISCHARGE: 10/21/2018 HOSPITAL COURSE: The patient is a 53-year-old male patient that is actually an inmate at [facility]. He was brought to the Emergency Room by emergency medical personnel with altered mental status. HISTORY OF PRESENT ILLNESS: The patient was reportedly found unresponsive in the field and during transport, he was moaning and yelling. He had no difficulty breathing, so he did not require any intubation. No Narcan was given. On arrival, the patient has pinpoint pupils. However, he has no difficulty breathing, he was unable to wake up and talk to the ER physician, and he was given 2 mg of Narcan. He then began to moan loudly, but would not answer questions. The patient is from a low security snf and there was a suspicion for some form of drug use. He was extensively investigated in the Emergency Room and his CT scan of the head, which basically showed no definite acute intracranial abnormality. His lab work was mostly unremarkable except for the fact that he has hypokalemia. His urinalysis was negative and his toxic screen was positive for alcohol. He was admitted for further evaluation. He apparently has had a history of ventricular tachycardia and systolic congestive heart failure for which he had had an AICD placed in 2004 and interrogated every 6 months. According to him, he was seen in consultation for that by the Cardiology team and his AICD was functioning normally. He has a device interrogation with appropriate impedance, thresholds and sensitivity, no sustained ventricular tachycardia events. No therapy is required or delivered. He has ____ episodes of SVT, but no arrhythmia significant enough to cause syncope. On admission, he developed also acute kidney injury. His creatinine has risen dramatically, so he was stopped his hydrochlorothiazide. He was seen also in consultation by Dr. Coleman and again the etiology of his syncope was unclear and with possible substance abuse, although the toxic screen was negative, has remained stable and his kidney function improved. The patient was discharged back to [facility] to follow with Dr. Coleman as an outpatient for electroencephalogram to rule out seizures. PHYSICAL EXAMINATION: GENERAL: On the day of discharge, he looked well and was clearly in no apparent respiratory distress. No pallor, jaundice or cyanosis. No lymphadenopathy, no thyromegaly. No jugular venous distention. No limb edema. VITAL SIGNS: His heart rate was 63, blood pressure was 113/72, temperature was 97.5, respiratory rate was 18 and oxygen saturation was 97% on room air. NEUROLOGIC: The rest of clinical examination is stable. The patient was ambulatory and walks without assistance or assistive devices. LABORATORY DATA: His lab work on day of discharge showed a white cell count of 10,000, hemoglobin 16.5, hematocrit 48, MCV 90 and platelet count 253,000. His serum sodium was 133, potassium 3.6, chloride 101, bicarbonate 26, anion gap of 6, BUN 16, creatinine 1.3, estimated GFR was 58 mL per minute, his glucose was 94. Calcium was 8.8. His toxic screen was positive for alcohol. Urinalysis was unremarkable and nasal screen for MRSA by PCR was positive. DISCHARGE MEDICATIONS: [facility] to continue on his amlodipine 5 mg once a day, hydrochlorothiazide 12.5 mg once a day, loratadine 10 mg once a day, losartan potassium 100 mg once a day and sotalol 80 mg twice a day. VISHAL ZAMORA MD DR: SHAHBAZ/edwina JOB#: [id number] / [id number]
== END 2018-10-21 14:15 | DRG 91 ==
LOC: ER 14:07 → EEVIPCON 14:07 → EDBD 14:07 → 1 SOUTH 17:30
PROVIDERS: ADMIT Internal Medicine; ATTEND Internal Medicine
PROC: 4B02XTZ Measurement of Cardiac Defibrillator, External Approach (ICD-10-PCS; principal; 2018-10-21)
DX: G92 Toxic encephalopathy (principal); N17.0 Acute kidney failure with tubular necrosis; I47.1 Supraventricular tachycardia; I50.20 Unspecified systolic (congestive) heart failure; F10.121 Alcohol abuse with intoxication delirium; R55 Syncope and collapse; R41.0 Disorientation, unspecified; E87.6 Hypokalemia; I11.0 Hypertensive heart disease with heart failure; Y90.9 Presence of alcohol in blood, level not specified; Z82.3 Family history of stroke; Z95.810 Presence of automatic (implantable) cardiac defibrillator; Z79.899 Other long term (current) drug therapy
CPT/HCPCS: 36415; 51701; 70450; 80048; 80053; 80307; 81001; 83735; 85025; 85027; 87641; 93005; 93306; 96374; 96375; 96376; J2060; J2310; 99285-25; J7030